=== PATIENT | male | born 1950 | race Hispanic/Latino ===

== ENCOUNTER 2025-04-10 08:57 | Inpatient (IN) | payer MEDICARE ==
[~2025-04-10] VITALS: Ht 180.3 cm; Wt 61.7 kg
[~2025-04-10 08:57] MED LIST: BUMETANIDE1 MG PO; FERROUS SULFAT324 MG PO; FINASTERIDE5 MG PO; FOLIC ACID0.4 MG PO; INSPRA50 MG PO; KETOCONAZOLE15 GM TOP; LACTULOSE10 GM/15 M PO; LIPITOR20 MG PO; MEMANTINE HCL5 MG PO; PANTOPRAZOLE SO40 MG PO; POTASSIUM CHLO20 ME1 PO; SODIUM BICARBO650 MG PO; VITAMIN E400 UNI1 PO
[2025-04-10] MEDS: CEFTRIAXONE 1 GM VIAL ONE (10:41)
[2025-04-10] MEDS: GENTAMICIN 80MG/NS 100 ML 200 ML IV ONE (10:41)
[2025-04-10] MEDS: SODIUM CHLORIDE 0.9% 1000ML 1,000 ML ONE (10:41)
[2025-04-10] MEDS ORDERED: PROPOFOL IV EMULSION 10 MG/ML 20 ML VIAL ONE (10:56)
[2025-04-10] MEDS ORDERED: FENTANYL CITRATE/PF 100MCG/2 ML INJ ONE (10:56)
[2025-04-10] MEDS ORDERED: LIDOCAINE HCL 2% LOCAL INJ 5 ML SDV VIAL INJ ONE (10:56)
[2025-04-10] MEDS ORDERED: ROCURONIUM BROMIDE 1 ML IV ONE (10:56)
[2025-04-10] MEDS ORDERED: SEVOFLURANE INHAL SOLN 250 ML PEN BTL ONE (10:56)
[2025-04-10] MEDS ORDERED: ACETAMINOPHEN 1000 MG/100 ML 0 ML IV ONE (10:56)
[2025-04-10] MEDS ORDERED: ONDANSETRON HCL INJ 2MG/ML 2ML 2 MG/ML VIAL ONE (12:22)
[2025-04-10] MEDS ORDERED: DEXAMETHASONE SOD PHOS INJ 4 MG/ML SDV ONE (12:22)
[2025-04-10] MEDS ORDERED: SUGAMMADEX SODIUM 200 MG/2 ML VIAL IV ONE (13:27)
[2025-04-10] MEDS ORDERED: DIPHENHYDRAMINE HCL 25 MG CAP PO PRN (14:00)
[2025-04-10] MEDS ORDERED: ONDANSETRON HCL INJ 2MG/ML 2ML 2 MG/ML VIAL IV PRN (14:00)
[2025-04-10] MEDS ORDERED: ACETAMINOPHEN 1000 MG/100 ML IV PRN (14:00)
[2025-04-10 15:29] LABS: BASOPHILS % 0.4 % (0.0-1.0); EOSINOPHILS % 1.2 % (0.0-6.0); LYMPHOCYTES % 18.3 % (18.0-39.1); MONOCYTES % 4.7 % (4.4-11.3); NEUTROPHILS % 74.9 % (38.7-80.0); RED CELL DISTRIBUTION WIDTH 14.9 % (11.7-14.4)
[2025-04-10 16:00] LABS: EST GLOMERULAR FILTRATION RATE 43.0 ML/MIN (>=60)
[2025-04-10 16:31] VITALS: BP 112/75; PULSE 70; RESP 15; TEMP 97.7; O2SAT 100
[2025-04-10 16:45] VITALS: BP 112/59; PULSE 72; RESP 20
[2025-04-10] MEDS: SENNA-S TABLET PO SCH ×2 (17:00→21:05)
[2025-04-10] MEDS: SODIUM CHLORIDE 0.9% 1000ML 1,000 ML IV SCH (18:41)
[2025-04-10 19:30] VITALS: BP 109/72; PULSE 70; RESP 20; TEMP 97.6; O2SAT 100
[2025-04-11] VITALS (13 sets, daily range): BP systolic 107–134; BP diastolic 65–85; PULSE 67–74; RESP 16–20; TEMP 97.1–97.8; O2SAT 95–100
[2025-04-11 05:02] LABS: BASOPHILS % 0.5 % (0.0-1.0); EOSINOPHILS % 0.3 % (0.0-6.0); LYMPHOCYTES % 12.3 % (18.0-39.1); MONOCYTES % 8.1 % (4.4-11.3); NEUTROPHILS % 78.4 % (38.7-80.0); RED CELL DISTRIBUTION WIDTH 14.8 % (11.7-14.4)
[2025-04-11 05:24] LABS: EST GLOMERULAR FILTRATION RATE 44.0 ML/MIN (>=60)
[2025-04-11] MEDS: VITAMIN E 400 UNIT CAP PO SCH (21:00)
[2025-04-11] MEDS: LACTULOSE SYRUP 20 GM/30 ML UDC PO SCH (21:42)
[2025-04-11] MEDS: ATORVASTATIN 40 MG TAB PO SCH (21:42)
[2025-04-12] VITALS (10 sets, daily range): BP systolic 113–132; BP diastolic 63–87; PULSE 64–112; RESP 16–20; TEMP 97.5–98.6; O2SAT 95–100
[2025-04-12 05:25] LABS: BASOPHILS % 0.6 % (0.0-1.0); EOSINOPHILS % 3.5 % (0.0-6.0); LYMPHOCYTES % 20.7 % (18.0-39.1); MONOCYTES % 10.6 % (4.4-11.3); NEUTROPHILS % 64.2 % (38.7-80.0); RED CELL DISTRIBUTION WIDTH 14.8 % (11.7-14.4)
[2025-04-12 05:59] LABS: EST GLOMERULAR FILTRATION RATE 52.0 ML/MIN (>=60)
[2025-04-12] MEDS: SODIUM BICARBONATE 650 MG TAB PO SCH (08:48)
[2025-04-12] MEDS: MEMANTINE 10 MG TAB PO SCH (08:48)
[2025-04-12] MEDS: PANTOPRAZOLE SOD 40 MG TABEC PO SCH (08:49)
[2025-04-12] MEDS: FOLIC ACID 1 MG TAB PO SCH (08:49)
[2025-04-12] MEDS: FINASTERIDE 5 MG TAB PO SCH (08:49)
[2025-04-12] MEDS: EPLERONONE 25 MG PO SCH (09:00)
[2025-04-12] MEDS: PHENAZOPYRIDINE HCL 100 MG TAB PO PRN (22:02)
[2025-04-13] VITALS (9 sets, daily range): BP systolic 110–131; BP diastolic 63–81; PULSE 60–90; RESP 16–20; TEMP 97.4–98.8; O2SAT 95–100
[2025-04-13 05:14] LABS: BASOPHILS % 0.6 % (0.0-1.0); EOSINOPHILS % 3.0 % (0.0-6.0); LYMPHOCYTES % 15.6 % (18.0-39.1); MONOCYTES % 11.3 % (4.4-11.3); NEUTROPHILS % 69.1 % (38.7-80.0); RED CELL DISTRIBUTION WIDTH 14.6 % (11.7-14.4)
[2025-04-13 05:42] LABS: EST GLOMERULAR FILTRATION RATE 57.0 ML/MIN (>=60)
[2025-04-14] VITALS (8 sets, daily range): BP systolic 101–105; BP diastolic 61–78; PULSE 60–75; RESP 16–20; TEMP 97.7–98.1; O2SAT 96–100
[2025-04-14 05:45] LABS: BASOPHILS % 0.6 % (0.0-1.0); EOSINOPHILS % 3.2 % (0.0-6.0); LYMPHOCYTES % 16.2 % (18.0-39.1); MONOCYTES % 11.1 % (4.4-11.3); NEUTROPHILS % 68.3 % (38.7-80.0); RED CELL DISTRIBUTION WIDTH 14.6 % (11.7-14.4)
[2025-04-14 06:03] LABS: EST GLOMERULAR FILTRATION RATE 51.0 ML/MIN (>=60)
[2025-04-14] MEDS ORDERED: LIDOCAINE JELLY 2% 10ML URO-JET ONE (21:57)
[2025-04-14] MEDS ORDERED: LIDOCAINE JELLY 2% 10ML URO-JET TOP ONE (22:00)
[2025-04-15] VITALS (9 sets, daily range): BP systolic 107–124; BP diastolic 66–78; PULSE 70–85; RESP 16–20; TEMP 97.7–98.2; O2SAT 97–100
[2025-04-15] MEDS: ACETAMINOPHEN/CODEINE 300MG - 30MG TAB PO PRN (20:15)
[2025-04-16 00:01] VITALS: BP 105/66; PULSE 61; RESP 18; TEMP 97.9; O2SAT 100
[2025-04-16 03:30] VITALS: BP 108/64; PULSE 63; RESP 17; TEMP 98.3; O2SAT 100
[2025-04-16 07:32] VITALS: PULSE 78; RESP 20; O2SAT 98
[2025-04-16 09:39] VITALS: BP 123/64; PULSE 98; RESP 18; TEMP 98.4; O2SAT 95
[2025-04-16 14:30] VITALS: BP 122/70; PULSE 69; RESP 20; TEMP 97.5
== END 2025-04-16 16:15 | disposition home or self-care (01) | DRG 713 ==
LOC: OR 08:57 → PACU V 13:49 → MED/SURG 17:00 → MED/SURG2 04-13 23:28
PROVIDERS: ADMIT Internal Medicine; ATTEND Urology
PROC: BT141ZZ Fluoroscopy of Kidneys, Ureters and Bladder using Low Osmolar Contrast (ICD-10-PCS; 2025-04-10)
PROC: 0T788ZZ Dilation of Bilateral Ureters, Via Natural or Artificial Opening Endoscopic (ICD-10-PCS; principal; 2025-04-10 12:04)
PROC: 0VT08ZZ Resection of Prostate, Via Natural or Artificial Opening Endoscopic (ICD-10-PCS; 2025-04-10 12:04)
DX: N40.1 Benign prostatic hyperplasia with lower urinary tract symptoms (principal); D62 Acute posthemorrhagic anemia; N13.8 Other obstructive and reflux uropathy; R31.0 Gross hematuria; N18.9 Chronic kidney disease, unspecified; N13.5 Crossing vessel and stricture of ureter without hydronephrosis; N41.9 Inflammatory disease of prostate, unspecified; R35.0 Frequency of micturition; I25.10 Atherosclerotic heart disease of native coronary artery without angina pectoris; I11.9 Hypertensive heart disease without heart failure; I48.0 Paroxysmal atrial fibrillation; E78.5 Hyperlipidemia, unspecified; R31.29 Other microscopic hematuria; N32.89 Other specified disorders of bladder; N32.3 Diverticulum of bladder; M19.90 Unspecified osteoarthritis, unspecified site; G89.18 Other acute postprocedural pain; Z87.440 Personal history of urinary (tract) infections; Z86.73 Personal history of transient ischemic attack (TIA), and cerebral infarction without residual deficits
CPT/HCPCS: 36415; 51798; 74420; 80048; 82948; 83735; 85025; 87086; 88305; 94799; J0696; J1100; J1580; J2003; J2405; J2470; J7030